=== PATIENT | female | born 1995 | race Caucasian/White ===

== ENCOUNTER 2023-03-12 10:27 | Outpatient (CLI) | payer OTHER, SELFPAY | END 2023-03-12 10:28 | disposition home or self-care (01) | PROVIDERS: PCP Physician Assistant Medical; Visit Provider Obstetrics & Gynecology | DX: Z86.14 Personal history of Methicillin resistant Staphylococcus aureus infection (principal) | CPT/HCPCS: 87081 ==

== ENCOUNTER 2023-03-19 13:56 | Outpatient (CLI) | payer OTHER, SELFPAY | END 2023-03-19 13:57 | disposition home or self-care (01) | PROVIDERS: PCP Physician Assistant Medical; Visit Provider Family Medicine | DX: R53.83 Other fatigue (principal); R68.89 Other general symptoms and signs; L65.9 Nonscarring hair loss, unspecified; Z78.9 Other specified health status | CPT/HCPCS: 80053; 82607; 82728; 84443 ==

== ENCOUNTER 2023-04-02 10:46 | Outpatient (CLI) | payer OTHER, SELFPAY | END 2023-04-02 10:47 | disposition home or self-care (01) | PROVIDERS: PCP Physician Assistant Medical; Visit Provider Obstetrics & Gynecology | DX: Z86.14 Personal history of Methicillin resistant Staphylococcus aureus infection (principal); Z12.4 Encounter for screening for malignant neoplasm of cervix | CPT/HCPCS: 87081 ==

== ENCOUNTER 2023-05-07 09:03 | Outpatient (CLI) | payer OTHER, SELFPAY ==
--- NOTE | 2023-05-07 09:15 | CRLHL7_ITS ---
For Patients: As a result of the Century Cures Act, medical imaging exams and procedure reports are released immediately into your electronic medical record. You may view this report before your referring provider. If you have questions, please contact your health care provider. INDICATION: Evaluate anatomy. COMPARISON: 02/12/2023 TECHNIQUE: Real time andrade scale imaging of the fetus was performed as well as color Doppler analysis of the umbilical vessels. FINDINGS: Sonographic imaging demonstrates a single living intrauterine gestation. Fetus demonstrates a regular cardiac rate of 152 beats per minute. Fetus has a breech position. The placenta lies left anterior without evidence of placenta previa. The edge of the placenta is located 5.5 cm from the internal cervical os. Amniotic fluid volume appears normal. Single deepest vertical pocket: 5.8 cm. The cervix is closed and measures 4.1 cm in length. The composite ultrasound gestational age is calculated at 21 weeks 6 days with an estimated sonographic due date of 09/11/2023. The estimated weight is 417 grams which lies at the 64th %. The following biometric measurements were obtained: Biparietal diameter: 5.0 cm/21 weeks 2 days 59th% Head circumference: 19.5 cm/21 weeks 5 days 72nd% Abdominal circumference: 16.0 cm/21 weeks 1 day 48th% Femur length: 3.6 cm/21 weeks 4 days 59th% The HC/AC ratio measures: 1.22 range (1.06-1.23) On anatomic survey, there is a normal appearance of the cerebral ventricles, cavum septi pellucidi, cisterna magna and cerebellum. The nose, lips, and facial profile appear normal. The cervical, thoracic and lumbar spine are well visualized and appear normal. There is a normal four-chamber heart view and the left and right ventricular outflow tracts appear normal. The diaphragm and stomach appear normal. The kidneys and bladder also appear normal. There is a normal three-vessel cord and cord insertion site. The four extremities appear normal. IMPRESSION: Normal OB ultrasound exam with concordance of clinical and sonographic dating. No intrinsic abnormalities noted on anatomic survey. Dictated by Pepe Camejo MD @ 05/07/2023 11:40:01 AM (Electronically Signed)
== END 2023-05-07 09:04 | disposition home or self-care (01) ==
PROVIDERS: PCP Physician Assistant Medical; Visit Provider Obstetrics & Gynecology
DX: Z34.92 Encounter for supervision of normal pregnancy, unspecified, second trimester (principal); Z3A.21 21 weeks gestation of pregnancy
CPT/HCPCS: 76805

== ENCOUNTER 2023-06-24 08:35 | Outpatient (CLI) | payer OTHER, SELFPAY | END 2023-06-24 08:36 | disposition home or self-care (01) | LOC: NFLDREF 06-28 09:29 | PROVIDERS: PCP Physician Assistant Medical; Referring Provider Physician Assistant Medical; Visit Provider Obstetrics & Gynecology | DX: Z34.90 Encounter for supervision of normal pregnancy, unspecified, unspecified trimester (principal); Z83.49 Family history of other endocrine, nutritional and metabolic diseases; Z3A.13 13 weeks gestation of pregnancy; F41.9 Anxiety disorder, unspecified; F32.A Depression, unspecified | CPT/HCPCS: 86592 ==

== ENCOUNTER 2023-06-30 09:39 | Outpatient (CLI) | payer OTHER, SELFPAY ==
[2023-06-30 09:53] VITALS: BP 119/78; PULSE 82
[2023-06-30 09:54] VITALS: RESP 16; TEMP 37
[2023-06-30 09:55] VITALS: PULSE 85; O2SAT 95
[2023-06-30 10:36] LABS: Appearance Urine Clear (Clear); Bilirubin Urine Negative (Negative); Blood Urine Negative (Negative); Color Urine Yellow (Yellow); Glucose Urine Negative (Negative); Ketones Urine Negative (Negative); Leukocyte Esterase Urine Negative (Negative); Nitrite Urine Negative (Negative); Protein Urine Negative (Negative); Specific Gravity Urine 1.015 (1.000-1.030); Urobilinogen Urine 0.2 (0.2-1.0); pH Urine 6.5 (5.0-8.5)
--- NOTE | 2023-06-30 12:19 | PC.OBNST ---
NST Note NST Note Start: 06/30/23 09:47 Freq: ONCE Status: Active Protocol: Document 06/30/23 11:15 WK (Rec: 06/30/23 12:19 WK [id number]) NST Note 1 Para (# of births) 0 EDC 09/17/23 Gestational Age In Weeks & Days 28 Weeks & 5 Days Patient Presented with Complaint(s) of Pain If Pain, describe location Abdominal pain L side of umbilicus with movement Reactive Yes Appropriate for Gestational Age Yes RN Zoey RNC Date 06/30/23 Reactive Yes Appropriate for Gestational Age Yes RN Iftikhar RN Date 06/30/23 OB NST charge Yes Complete NST Note via Write Note Yes The provider's electronic signature indicates the NST is reactive/appropriate for gestational age. *Note to provider: If an addendum is required, open the patient's chart and click on the note under the Nurse/Allied Health tab.
--- NOTE | 2023-06-30 15:33 | PM.OBLDTN ---
OB - Triage/Final Diagnosis Visit Information Time Seen by Provider: 11:00 Date Seen: 06/30/23 Narrative: The patient is a 27 year old 1 para 0 at 28 5/7 weeks gestation by LMP, who presents with left mid abdominal pain and decreased movement. Please see nursing documentation for complete details. Briefly, Cheryl noted onset of left abdominal pain just lateral to her umbilicus yesterday while at work. She left work, where her pain resolved with rest and Tylenol. She had question of decreased movement at that time, but this subsequently improved. This morning at work, she noted return of her symptoms with the same left-sided pain and question of decreased movement prompting her visit today. She reports pain is just left of the umbilicus, described as sharp with certain movements. No known exacerbating activities, but she notes onset when she is active at work. She has seen resting in the triage bed now, where her pain is absent. Denies fevers/chills, nausea/vomiting, bowel or bladder concerns. UA was completed today, negative for evidence of UTI. She denies any abdominal tightening or known contractions, vaginal bleeding or leaking of fluids. She notes movement has improved since presentation. Evaluation Laboratory results: Laboratory Tests 06/30/23 Range/Units 10:20 Urine Color Yellow (Yellow) Urine Appearance Clear (Clear) Urine pH 6.5 (5.0-8.5) Ur Specific [place] 1.015 (1.000-1.030) Urine Protein Negative (Negative) Urine Glucose (UA) Negative (Negative) Urine Ketones Negative (Negative) Urine Blood Negative (Negative) Urine Nitrite Negative (Negative) Urine Bilirubin Negative (Negative) Urine Urobilinogen 0.2 (0.2-1.0) Ur Leukocyte Esterase Negative (Negative) Vital signs: Vital Signs - 24 hr 06/30/23 09:53 06/30/23 09:54 06/30/23 09:55 Temperature 98.6 F Pulse Rate 82 Respiratory Rate 16 Blood Pressure 119/78 Pulse Oximetry 95 Comments: General: No acute distress Psych: Alert and oriented x 3, full affect HEENT: Normocephalic, atraumatic Abdomen: Gravid. Nontender to palpation throughout, no rebound or guarding. When pressing on site of previously reported pain, there is no tenderness. However upon attempted set up, positive Carnett's sign at this location consistent with left rectus abdominus muscle. Fetus (Single) Heart Rate Baseline: 135 Beater Out Leveling Machine Variability: Moderate (6-25) Monitor Accelerations: Present (10x10 consistent with GA) Monitor Decelerations: None Final Diagnosis (1) : Status: Acute Problem details: Tex is a 27yo at 28w5d GA seen in [facility] for left abdominal pain and decreased movement. ANC complicated by depression/anxiety, early nausea/vomiting and gestational anemia. She notes left abdominal pain, greatest with activity. She has no pain at rest, abdominal exam is entirely benign today. There is positive Carnett's sign over the left rectus abdominus, where I feel musculoskeletal pain is the most likely etiology of her symptoms. Recommend conservative care including support belt (provided today), rest, stretching, ice/heat and tylenol PRN. No contractions on toco nor by Cheryl's report prior to presentation. No signs/symptoms of labor at this time. Return precautions reinforced. With regard to decreased movement, testing today is reassuring and appropriate for gestational age. We reviewed kick count methods and return precautions. Next visit on 07/09/23. (2) Abdominal pain: Status: Acute (3) Nausea and vomiting during : Status: Acute (4) Anxiety and depression: Status: Acute (5) Family history of hemochromatosis: Status: Acute (6) Grief: Status: Acute
== END 2023-06-30 11:15 | disposition home or self-care (01) ==
LOC: OB OUT 09:44 → OB 09:45
PROVIDERS: PCP Physician Assistant Medical; Visit Provider Obstetrics & Gynecology
DX: Z34.93 Encounter for supervision of normal pregnancy, unspecified, third trimester (principal); Z3A.30 30 weeks gestation of pregnancy
CPT/HCPCS: 59025; 81003; 99213

== ENCOUNTER 2023-08-20 11:30 | Outpatient (CLI) | payer OTHER, SELFPAY | END 2023-08-20 11:31 | disposition home or self-care (01) | LOC: NFLDREF 08-23 07:00 | PROVIDERS: PCP Physician Assistant Medical; Referring Provider Physician Assistant Medical; Visit Provider Obstetrics & Gynecology | DX: Z36.85 Encounter for antenatal screening for Streptococcus B (principal) | CPT/HCPCS: 87081; 87653 ==

== ENCOUNTER 2023-08-23 21:07 | Outpatient (CLI) | payer OTHER, SELFPAY ==
[2023-08-23 21:23] VITALS: BP 121/75; PULSE 75; TEMP 36.7
[2023-08-23 21:24] VITALS: PULSE 78; O2SAT 96
[2023-08-23 21:53] LABS: Appearance Urine Clear (Clear); Bilirubin Urine Negative (Negative); Blood Urine Negative (Negative); Color Urine Yellow (Yellow); Glucose Urine Negative (Negative); Ketones Urine Negative (Negative); Leukocyte Esterase Urine Negative (Negative); Nitrite Urine Negative (Negative); Protein Urine Negative (Negative); Specific Gravity Urine 1.015 (1.000-1.030); Urobilinogen Urine 0.2 (0.2-1.0)
--- NOTE | 2023-08-23 23:09 | PC.OBNST ---
NST Note NST Note Start: 08/23/23 21:13 Freq: ONCE Status: Active Protocol: Document 08/23/23 23:06 DAR (Rec: 08/23/23 23:07 DAR [id number]) NST Note 1 Para (# of births) 0 EDC 09/17/23 Gestational Age In Weeks & Days 36 Weeks & 3 Days Patient Presented with Complaint(s) of Decreased movement,Pain If Pain, describe location Back pain and pelvic pain Other Complaints See obix documentation Reactive Yes Appropriate for Gestational Age Yes RN Rudy France RN Date 08/23/23 Reactive Yes Appropriate for Gestational Age Yes ENZO Schaeffer RN Date 08/23/23 OB NST charge Yes Complete NST Note via Write Note Yes The provider's electronic signature indicates the NST is reactive/appropriate for gestational age. *Note to provider: If an addendum is required, open the patient's chart and click on the note under the Nurse/Allied Health tab.
== END 2023-08-23 22:36 | disposition home or self-care (01) ==
LOC: OB OUT 21:07 → OB 21:08
PROVIDERS: PCP Physician Assistant Medical; Visit Provider Obstetrics & Gynecology
DX: O36.8130 Decreased fetal movements, third trimester, not applicable or unspecified (principal); Z3A.36 36 weeks gestation of pregnancy
CPT/HCPCS: 59025; 81003; 99213

== ENCOUNTER 2023-08-26 07:40 | Outpatient (CLI) | payer OTHER, SELFPAY ==
[2023-08-26 07:53] VITALS: PULSE 84; O2SAT 97
[2023-08-26 07:54] VITALS: RESP 16; TEMP 37.1
[2023-08-26 08:00] VITALS: BP 115/74; PULSE 77
[2023-08-26 08:16] VITALS: PULSE 75; O2SAT 98
--- NOTE | 2023-08-26 10:02 | PC.OBNST ---
NST Note NST Note Start: 08/26/23 07:50 Freq: ONCE Status: Active Protocol: Document 08/26/23 08:40 WK (Rec: 08/26/23 10:02 WK [id number]) NST Note 1 Para (# of births) 0 EDC 09/17/23 Gestational Age In Weeks & Days 36 Weeks & 6 Days Patient Presented with Complaint(s) of Decreased movement Reactive Yes RN Zoey RNC Date 08/26/23 Reactive Yes RN HRiley RN OB NST charge Yes Complete NST Note via Write Note Yes The provider's electronic signature indicates the NST is reactive/appropriate for gestational age. *Note to provider: If an addendum is required, open the patient's chart and click on the note under the Nurse/Allied Health tab.
== END 2023-08-26 09:00 | disposition home or self-care (01) ==
LOC: OB OUT 07:44 → OB 07:45
PROVIDERS: PCP Physician Assistant Medical; Visit Provider Obstetrics & Gynecology
DX: O36.8130 Decreased fetal movements, third trimester, not applicable or unspecified (principal); Z3A.36 36 weeks gestation of pregnancy
CPT/HCPCS: 59025; 99213

== ENCOUNTER 2023-08-27 14:15 | Outpatient (RCR) | payer OTHER, SELFPAY ==
--- NOTE | 2023-08-13 08:38 | ONC.NURNOTE ---
Dx: iron deficiency anemia
--- NOTE | 2023-08-13 10:43 | URNOTE ---
Request received for authorization for?Iron Sucrose (Venofer) ([id number]). Prior authorization is not required per [facility] site on 08/10/23 .
[2023-08-17 11:59] VITALS: BP 119/78; PULSE 77; RESP 16; TEMP 35.8; O2SAT 95
[2023-08-17] MEDS: IRON SUCROSE COMPLEX 200 MG in 0.9 % SODIUM CHLORIDE 100 ml 100 ML 440 MG IVPB (13:18)
[2023-08-17 13:40] VITALS: BP 108/73; PULSE 67; RESP 16; TEMP 36.8; O2SAT 97
[2023-08-17 14:15] VITALS: BP 115/79; PULSE 70; RESP 16; TEMP 36.9; O2SAT 98
[2023-08-19 08:38] VITALS: BP 122/79; PULSE 90; RESP 16; TEMP 36.6; O2SAT 97
[2023-08-19] MEDS: IRON SUCROSE COMPLEX 200 MG in 0.9 % SODIUM CHLORIDE 100 ml 100 ML 440 MG IVPB (09:27)
[2023-08-19 10:00] VITALS: BP 112/74; PULSE 77; RESP 16; TEMP 36.8; O2SAT 95
[2023-08-19 10:33] VITALS: BP 114/77; PULSE 79; RESP 16; TEMP 36.9; O2SAT 96
[2023-08-23 10:28] VITALS: BP 122/80; PULSE 88; RESP 16; TEMP 36.8; O2SAT 96
[2023-08-23] MEDS: IRON SUCROSE COMPLEX 200 MG in 0.9 % SODIUM CHLORIDE 100 ml 100 ML 440 MG IVPB (10:45)
--- NOTE | 2023-08-23 12:16 | ONC.NURNOTE ---
Patient here for iron infusion. She notes that she has been having vomitting intermittently and lower back pain since starting this. She was seen by [facility] on Wednesday and she feels that she was told that she only has one week left of infusions. With back pain being a possible side effect of the iron, phone call placed to [facility]. Triage talked with providers, who gave the okay to go ahead with iron infusion today. They recommend patient calling if pain continues. Infusion was tolerated while here, no changes. Patient told to contact [facility] if pain continues or worsens.
[2023-08-25 11:16] VITALS: BP 127/82; PULSE 80; RESP 16; O2SAT 97
[2023-08-25] MEDS: IRON SUCROSE COMPLEX 200 MG in 0.9 % SODIUM CHLORIDE 100 ml 100 ML 440 MG IVPB (11:35)
[2023-08-25 12:36] VITALS: BP 123/76; PULSE 78; RESP 16; O2SAT 96
[2023-08-27 15:00] VITALS: BP 128/84; PULSE 83; RESP 16; TEMP 36.4; O2SAT 98
[2023-08-27] MEDS: IRON SUCROSE COMPLEX 200 MG in 0.9 % SODIUM CHLORIDE 100 ml 100 ML 440 MG IVPB (15:11)
[2023-08-27 15:29] VITALS: BP 123/82; PULSE 79; RESP 16; TEMP 36.7; O2SAT 97
[2023-08-27 16:03] VITALS: BP 119/80; PULSE 78; RESP 16; TEMP 24.4; O2SAT 97
== END 2024-02-13 23:59 | disposition home or self-care (01) ==
LOC: CCIC 14:15
PROVIDERS: PCP Physician Assistant Medical; Referring Provider Physician Assistant Medical; Visit Provider Physician Assistant Medical
DX: D50.9 Iron deficiency anemia, unspecified (principal)
CPT/HCPCS: 96365; 96374; J1756

== ENCOUNTER 2023-09-09 23:59 | Outpatient (CLI) | payer OTHER, SELFPAY ==
[2023-09-10 00:09] VITALS: BP 123/84; PULSE 87; RESP 16; TEMP 36.7
--- NOTE | 2023-09-10 01:41 | PC.OBNST ---
NST Note NST Note Start: 09/10/23 00:01 Freq: ONCE Status: Active Protocol: Document 09/10/23 01:40 BETHEL (Rec: 09/10/23 01:41 BETHEL [id number]) NST Note 1 Para (# of births) 0 EDC 09/17/23 Gestational Age In Weeks & Days 39 Weeks & 0 Days Patient Presented with Complaint(s) of Pain Other Complaints Abdominal cramping Reactive Yes Appropriate for Gestational Age Yes RN Rudy Schaeffer RN Date 09/10/23 Reactive Yes Appropriate for Gestational Age Yes ENZO Bowden RN Date 09/10/23 OB NST charge Yes Complete NST Note via Write Note Yes The provider's electronic signature indicates the NST is reactive/appropriate for gestational age. *Note to provider: If an addendum is required, open the patient's chart and click on the note under the Nurse/Allied Health tab.
== END 2023-09-10 01:50 | disposition home or self-care (01) ==
LOC: OB OUT 23:59 → OB 09-10
PROVIDERS: PCP Physician Assistant Medical; Visit Provider Obstetrics & Gynecology
DX: O47.1 False labor at or after 37 completed weeks of gestation (principal); Z3A.39 39 weeks gestation of pregnancy
CPT/HCPCS: 59025; 99213

== ENCOUNTER 2023-09-14 15:55 | Inpatient (IN) | payer OTHER, SELFPAY ==
[2023-09-14] VITALS (8 sets, daily range): BP systolic 113–133; BP diastolic 57–84; PULSE 64–102; RESP 18; TEMP 36.5–36.9; O2SAT 95; BMI 38.2
--- NOTE | 2023-09-14 17:04 | W.PM.LDBA ---
Subjective History of Present Illness Time Seen by Provider: 17:04 Date Seen: 09/14/23 Narrative: Patient is being admitted to Labor and Delivery for elective IOL. She is a 28 year old at 39 4/7 weeks gestation. Her full history and physical was dictated by Dr. Fischer on 08/27/23. Please see this for details. Specific Issues/Plans GBS (+): ampicillin for prophylaxis 1. Depression and anxiety. Managed by PCP. Prescribed sertraline 01/27/2023 At 1st OB, had not started medication. PHQ9 13, GAD7 13. Recommend she start sertraline. Recommend therapy, declines at this time Took 8 wks of FMLA in early for depression and anxiety. As of 03/12/23, PHQ9 = 6 but GAD7 = 14. Not taking sertraline regularly 2. Obesity, BMI 32.7 Hemoglobin A1c 4.8% ASA 81 mg 3. History of MRSA MRSA swab x2: 1st swab- 03/12/23 = negative, 2nd swab 04/02/2023 = negative. 4. Cheryl's mother suddenly in February of 2022. YANCY's father late May of Creutzfeldt-Emmanuel disease (CJD). Family history of DVT, mother. Patient does not believe she had underlying blood clotting disorder, but will obtain further information. She did have metastatic pulmonary adenocarcinoma FOZoltan's father is having autopsy, testing for genetic variant of CJD by [facility] 5. History of bilateral breast reduction 6. Rubella non-immune MMR pp 7. Nausea and vomiting of . Using vitamin B6 and Unisom with suboptimal results. Prescribed Phenergan 12.5 mg on 03/12/23. Improved as of 16 weeks 8. Family history of hemochromatosis in her sister. Genetics consult done end of July; testing pending. Currently anemic; no current concerns regarding iron overload. 9. Anemia, with hemoglobin 10.4 at 28 weeks. Begin iron supplementation every other day. Repeat at 34 weeks : 10.7. Receiving iron infusions 10. Pap 02/12/23 : UNS, +HPV (not 16 or 18) repeat pap 04/02/23: NIL Repeat pap with HPV testing 11. GERD, suboptimal response to Tums. Omeprazole 20 mg daily 08/06/23. COVID: 07/28/23 Flu: 07/28/23 RSV: 08/06/23 H&P: Dr. Fischer on 08/27/2023 OB - Problem Based A/P Additional Plan (1) : Status: Acute Plan 1. Elective IOL started with placement of cook catheter 60mL/60mL. Will start IV Oxytocin at around 10pm per protocol. 2. GBS positive, start Ampicillin with start of IV Oxytocin. 3. Pain management as needed. 4. Care to be assumed by Dr. Powers tommorrow am. OB Exam Physical Exam Vital signs: Temp Pulse BP Pulse Ox 97.7 F 102 H 122/84 95 09/14/23 16:08 09/14/23 16:08 09/14/23 16:08 09/14/23 16:09 Detailed Labor and Delivery Exam Patient Gravid: Yes Dilation (cm): 1 Effacement (%): 50 Cervix position: mid Consistency: medium Tachysystole: No Fetus (Single) Station: -2 Amniotic Membrane Status: intact Heart Rate Baseline: 135 Monitor Accelerations: Present Monitor Decelerations: None Half-Way Variability: Moderate (6-25)
[2023-09-14] MEDS: LACTATED RINGERS 1000 ML 1,000 ML 125 ML IV (21:05)
[2023-09-14] MEDS: OXYTOCIN 30 unit/500 ML in NS 30 UNIT/500 ML BAG IVPB (21:10)
[2023-09-14 21:15] LABS: Basophils Absolute Auto 0.03 K/uL (0.00-0.30); Basophils Percent Auto 0.3 % (0.0-3.0); Eosinophils Absolute Auto 0.13 K/uL (0.00-0.50); Eosinophils Percent Auto 1.4 % (0.0-7.0); Hematocrit 34.9 % (33.0-51.0); Hemoglobin* 11.8 gm/dL (12.0-16.0); Immature Granulocytes Abs Auto 0.02 K/uL (0.00-0.30); Immature Granulocytes Pct Auto 0.2 %; Lymphocytes Percent Auto 16.1 % (20-44); Mean Corpuscular HGB Conc 34 gm/dL (32-36); Mean Corpuscular Hemoglobin 32 pg (26-34); Mean Corpuscular Volume 93 fL (80-100); Monocytes Percent Auto 4.9 % (0.0-11.0); Neutrophils Percent Auto 77.1 % (42.0-72.0); Platelet Count* 217 K/uL (140-440); RDW Coefficient of Variation % 15.1 % (11.5-15.5); Red Blood Count 3.74 m/uL (4.00-5.20); White Blood Count* 9.07 K/uL (4.50-11.00)
[2023-09-14 21:17] LABS: Slide Review Reflex No
[2023-09-14] MEDS: MORPHINE 10 MG/ML inj IM (22:18)
[2023-09-14] MEDS: hydrOXYzine pamoate 25 MG CAPSULE 100 MG PO (22:18)
[2023-09-15] VITALS (58 sets, daily range): BP systolic 101–143; BP diastolic 55–90; PULSE 62–108; RESP 16; TEMP 36.8–37.2; O2SAT 96–98
[2023-09-15] MEDS: AMPICILLIN 2 GM in 0.9 % SODIUM CHLORIDE Mini-bag 100 ML IVPB (08:36)
[2023-09-15] MEDS: LACTATED RINGERS 1000 ML 1,000 ML 125 ML IV ×3 (09:41→23:35)
[2023-09-15] MEDS: AMPICILLIN 1 GM in 0.9 % SODIUM CHLORIDE Mini-bag 100 ML IVPB ×3 (12:58→20:52)
--- NOTE | 2023-09-15 16:10 | PM.OBPNL ---
Subjective Time Seen by Provider: 15:00 Date Seen: 09/15/23 Narrative: Ms. Sanchez is a 28-year-old undergoing elective induction of labor at 39w5d GA. course is complicated by depression/anxiety, obesity, GERD and GBS positivity. Her induction was started by Dr. Du Cuadra, please see her H&P for complete details. Her induction progress has included Cook catheter and Pitocin, though Pitocin was discontinued for about 4 hours overnight in the setting of staffing issues. I 1st checked her cervix at 10:00 a.m., found to be 3/50/1. We continued Pitocin titration per heart rate and toco data, where repeat exam was performed at 1500 and was 4/50/-1. Risks, benefits and alternatives to amniotomy were reviewed and recline provided verbal consent to proceed. AROM performed with return of clear fluid. Excellent application of head to cervix. Objective Exam: Cervix: 4/50/-1. Amniotomy performed with return of clear fluid FHR: Category 1. baseline 130bpm, moderate variability, accelerations present, decelerations absent. EFW by Peyman: 3500g Vital Signs: Last Vital Signs Temp 98.2 F 09/15/23 15:32 Pulse 76 09/15/23 14:56 Resp 16 09/15/23 11:04 BP 124/79 09/15/23 14:56 Pulse Ox 95 09/14/23 16:09 Assessment Station: -2 Heart Rate Baseline: 135 Monitor Accelerations: Present Monitor Decelerations: None Plan Plan: - Cervix is 4/50/-1, s/p amniotomy - Plan to continue Pitocin titration per heart rate/toco data - BT O positive - GBS positive, ampicillin ongoing
[2023-09-15] MEDS: LIDOCAINE 2% (PF) 5 ML VIAL EPIDURAL (19:04)
[2023-09-15] MEDS: ROPIVACAINE 0.2% 100 ml 100 ML 12 MG EPIDURAL (19:04)
[2023-09-15] MEDS: ROPIVACAINE 0.2 % PF 10 ML INJ 20 MG EPIDURAL (19:04)
--- NOTE | 2023-09-15 19:12 | P.ANBPRC_ITS ---
[facility] Medical History (Updated 08/07/23 @ 22:11 by Terra Tapia MD) Vegetarian diet ?Z78.9 - Other specified health status (ICD-10) Infection of kidney ?N15.9 - Renal tubulo-interstitial disease, unspecified (ICD-10) Cyclic vomiting syndrome (2012) ?R11.15 - Cyclical vomiting syndrome unrelated to migraine (ICD-10) Grief ?F43.21 - Adjustment disorder with depressed mood (ICD-10) Nausea and vomiting during ?O21.9 - Vomiting of , unspecified (ICD-10) Anxiety and depression ?F41.9 - Anxiety disorder, unspecified (ICD-10) ?F32.A - Depression, unspecified (ICD-10) History of staphylococcal infection ?Z86.19 - Personal history of other infectious and parasitic diseases (ICD-1 0) Hx MRSA infection ?Z86.14 - Personal history of Methicillin resistant Staphylococcus aureus infection (ICD-10) Abscess ?L02.91 - Cutaneous abscess, unspecified (ICD-10) Surgical History (Updated 03/19/23 @ 14:07 by Danica Harvey MD) History of third molar tooth extraction ?K08.409 - Partial loss of teeth, unspecified cause, unspecified class (ICD- 10) History of bilateral breast reduction surgery ?Z98.890 - Other specified postprocedural states (ICD-10) Family History (Updated 03/19/23 @ 14:10 by Danica Harvey MD) Brother Depression Mother DVT (deep venous thrombosis) Coronary artery disease Lung cancer Maternal Grandfather Seizure disorder Family/Other Seizure disorder Brother Diabetes Sister Diabetes Social History (Updated 03/19/23 @ 14:11 by Danica Harvey MD) Narrative: Engaged, [employer], Exercise 4 days a week by running 2 miles Nonsmoker Does not drink alcohol when , usually 2 drinks a week No drugs Non-smoker What is your current living situation?: I presently have a place to live Problems where you live: no known problems In the past 12 months, utilities in danger of being shut off: no In past 12 months, lack of transportation kept you from medical appts, meetings, work, or getting things needed for daily living: no In the past 12 mos, have been you worried that your food would run out before you had money to buy more?: never true In the past 12 mos, the food you bought just didn't last and you didn't have money to buy more?: never true Smoking Status: Never smoker How often does anyone, including family, friends and others, physically hurt you : never How often does anyone, including family, friends and others, insult or talk down to you: never How often does anyone, including family, friends and others, threaten you with harm: never How often does anyone, including family, friends and others, scream or curse at you: never Little interest or pleasure in doing things: several days Feeling down, depressed, or hopeless: not at all Meds Home Medications and Allergies Home Medications Medication Instructions Recorded Confirmed Type prenat.vits,dickson,yxo-zltf-rhgwv 1 tab PO QDAY 01/27/23 09/14/23 History aspirin 81 mg tablet,delayed 81 mg PO QDAY 04/02/23 09/14/23 History release (Adult Low Dose Aspirin) Allergies Allergy/AdvReac Type Severity Reaction Status Date / Time No Known Drug Allergies Allergy Verified 09/10/23 08:41 Results Labs Labs: Laboratory Results - last 24 hr 09/14/23 21:05 WBC 9.07 RBC 3.74 L Hgb 11.8 L Hct 34.9 MCV 93 MCH 32 MCHC 34 RDW Coeff of Chuckie 15.1 Plt Count 217 Neut % (Auto) 77.1 H Lymph % (Auto) 16.1 L Mcdowell % (Auto) 4.9 Eos % (Auto) 1.4 Baso % (Auto) 0.3 Neut # (Auto) 7.00 Lymph # (Auto) 1.50 Mcdowell # (Auto) 0.40 Eos # (Auto) 0.13 Baso # (Auto) 0.03 Abs Immat Gran (auto) 0.02 Imm/Tot Granulo (auto) 0.2 Blood Type O Positive Antibody Screen NEGATIVE Vital Signs Vital Signs: Last Vital Signs Temp 98.4 F 09/15/23 18:04 Pulse 87 09/15/23 19:10 Resp 16 09/15/23 11:04 BP 121/72 09/15/23 19:10 Pulse Ox 96 09/15/23 19:05 Weight: 104.372 kg Height: 165.1 cm Anesthesia Procedures Epidural Insertion Patient Location: OB Start Time: 18:45 Stop Time: 19:12 Start Date: 09/15/23 Stop Date: 09/15/23 Reason for Block: procedure for pain Patient Position: sitting Performed By: Orville Cadena Preanesthetic Checklist: IV checked, risks and benefits discussed, surgical consent, monitors and equipment checked, pre-op evaluation, timeout performed and anesthesia consent Prep: chlorhexidine gluconate Monitoring: blood pressure monitoring, continuous pulse oximetry and heart rate Approach: midline Vertebral Space: lumbar (1-5) Epidural Technique: RYAN air Needle Type: Tuohy needle Injection Technique: continuous catheter Needle gauge: 17 Needle Length (cm): 10 cm Needle Insertion Depth (cm): 7 Catheter Gauge: 19 Catheter Type: multi-orifice Catheter at skin depth (cm): 13 Test Dose Result: negative and lidocaine 1.5% with epinephrine 1 to 200,000
[2023-09-16] VITALS (125 sets, daily range): BP systolic 96–166; BP diastolic 50–102; PULSE 66–118; RESP 16–20; TEMP 36.5–37.8; O2SAT 88–100
[2023-09-16] MEDS: LIDOCAINE 2% (PF) 5 ML VIAL EPIDURAL ×3 (00:35→10:21)
[2023-09-16] MEDS: PHENYLEPHRINE 100 MCG/ML SYRINGE IVP ×2 (00:44→05:31)
[2023-09-16] MEDS: AMPICILLIN 1 GM in 0.9 % SODIUM CHLORIDE Mini-bag 100 ML IVPB ×4 (01:35→13:19)
[2023-09-16] MEDS: ONDANSETRON 2 MG/ML inj 4 MG IV (01:58)
[2023-09-16] MEDS: ROPIVACAINE 0.2% 100 ml 100 ML 12 MG EPIDURAL ×3 (02:06→14:58)
--- NOTE | 2023-09-16 03:49 | PM.OBPNL ---
Subjective Time Seen by Provider: 04:31 Date Seen: 09/16/23 Narrative: Ms. Sanchez is a 28yo at 39w6d GA ongoing elective IOL. course is complicated by depression/anxiety, obesity, GERD and GBS positivity. Labor course has included cook catheter, pitocin and AROM at 1515. She has made slow change through the latent phase of labor, at 5/70/-1 by RN exam at last check at 2350. She has had difficulty with pain control despite epidural, where this was re-bolused and now pain control is better. She had pitocin turned down once due to tachysystole without FHR changes and then off x1 due to several late decelerations (off from 0100 to 0215), now titration continues and is at 4 presently. Cheryl as been resting the last several hours. She notes pain is much improved, but still breathes through contractions. She denies uterine tenderness, malodorous discharge. She has felt intermittently warm or cool, but no particular fevers/chills. Last maternal temperature was 100.1 deg F. No maternal or tachycardia present. Objective Exam: General: Alert and oriented, in no acute distress Cervix: 4-5/70/-1 FHR: Category 1. Baseline 140bpm with moderate variability, accelerations present and decelerations absent. Vital Signs: Last Vital Signs Temp 99.5 F 09/16/23 02:47 Pulse 76 09/16/23 03:36 Resp 16 09/16/23 02:47 BP 124/63 09/16/23 03:36 Pulse Ox 96 09/15/23 19:05 Assessment Station: -2 Heart Rate Baseline: 135 Monitor Accelerations: Present Monitor Decelerations: None Plan Plan: Ms. Sanchez is a 28yo undergoing elective IOL. course is complicated by depression/anxiety, obesity, GERD and GBS positivity. - She has made slow change through the latent phase of labor, 4-5cm on my last exam, 70% effaced and -1 station. IUPC placed after discussion of risks/benefits and alternatives - Cheryl has noted mild warm/cool feelings, last maternal temp was 100.1 deg F. She has no uterine tenderness, malodorous discharge, maternal or tachycardia. - We discussed chorioamnionitis is a potential risk of prolonged induction, may be associated with dysfunctional labor patterns and increased risk of . She does not meet criteria for chorioamnionitis at this time - would initiate ampicillin/gentamicin if she does have a fever of >=100.4 deg F, we would additionally proceed with labs including a CBC and T/S. - Discussed my standard recommendation to proceed with primary delivery for failed IOL would be 24 hours on pitocin and 18 hours ruptured (would be 0915 this AM) if we fail to achieve active labor. That said, we may consider sooner in the event of nonreassuring heart rate or development of chorio. All questions answered. - Plan to continue pitocin titration per FHR and IUPC data at this this.
[2023-09-16] MEDS: LACTATED RINGERS 1000 ML 1,000 ML 125 ML IV ×3 (07:41→19:20)
--- NOTE | 2023-09-16 09:30 | P.OBPN_ITS ---
Subjective Time Seen by Provider: 08:15 Date Seen: 09/16/23 Narrative: Subjective: Patient is uncomfortable w/ epidural during contractions, just received a bolus from anesthesia. Pitocin: 13 milliunits/minute. Vital signs: Per electronic medical record. EFM: Baseline 136, many accelerations, no decelerations, moderate variability, reactive. Category 1. IUPC: Contractions every 3-5 minutes. [place] units 125-130/10 minutes: not adequate. SVE: 4-5 cm/70 %/-2. Unchanged from previous exams. Assessment: 28-year-old 1 para 0 at 39 weeks 6 days gestation undergoing elective induction of labor. Plan: 1. Continue Pitocin per labor induction protocol. 2. Epidural for labor analgesia 3. Maximum temperature 100.1? F, most recent temperature 98.7? F. Will continue to monitor and if has a temperature 100.4? F or higher I will start ampicillin and gentamicin for chorioamnionitis. No evidence of maternal or tachycardia, painful fundus between contractions, foul-smelling discharge or fever at this time. 4. 18 hours post rupture of membranes at 9:15 a.m. today and 24 hours on Pitocin at 11:00 a.m. today. She does not make any cervical change in that time she meets criteria for an unsuccessful induction of labor and a will be recommended. 5. I reviewed how a is performed and Kvng reviewed risks associated with . 6. I will reassess the patient after 11:00 a.m. and a plan for delivery. Objective Vital Signs: Last Vital Signs Temp 98.7 F 09/16/23 08:02 Pulse 72 09/16/23 09:25 Resp 18 09/16/23 08:02 BP 129/79 09/16/23 09:25 Pulse Ox 96 09/15/23 19:05 Assessment Station: -2 Heart Rate Baseline: 135 Monitor Accelerations: Present Monitor Decelerations: None
[2023-09-16] MEDS: fentaNYL 100 MCG/2 ML inj EPIDURAL (10:35)
--- NOTE | 2023-09-16 16:40 | PM.OBPNL ---
Subjective Time Seen by Provider: 04:35 Date Seen: 09/16/23 Narrative: Subjective: Patient is uncomfortable with contractions even with an epidural. She states she feels pain in her but. Pitocin: 18 milliunits/minute. Vital signs: Per electronic medical record. EFM: Baseline 140s, positive accelerations, early decelerations with contractions, minimal and moderate variability, not reactive. Category 2. [employer]: Contractions every 2-4 minutes. SVE: Vertex remains at the +1 station with increased caput. No movement of the vertex after 2.5 hours of pushing Assessment: 28-year-old 1 para 0 at 39 weeks 6 days gestation arrest of descent Plan: 1. Stopped Pitocin. 2. Recommended delivery for arrest of descent. 3. Anesthesia and operating room team notified. 4. Consent form reviewed and signed for primary low-transverse section. Objective Vital Signs: Last Vital Signs Temp 99.3 F 09/16/23 15:54 Pulse 72 09/16/23 16:30 Resp 18 09/16/23 15:54 BP 130/77 09/16/23 16:30 Pulse Ox 100 09/16/23 12:17 Assessment Station: -2 Heart Rate Baseline: 135 Monitor Accelerations: Present Monitor Decelerations: None
[2023-09-16] MEDS: CEFAZOLIN 1 GM inj 3 GM IVP (17:28)
[2023-09-16] MEDS: AZITHROMYCIN 500 MG in 0.9 % SODIUM CHLORIDE 250 ml 250 ML 255 MG IVPB (17:28)
--- NOTE | 2023-09-16 18:18 | W.ANESCHARGE ---
Anesthesia Charges Start Date/Time Anesthesia Start Date: 09/16/23 Anesthesia Start Time: 17:18 Stop Date/Time Anesthesia Stop Date: 09/16/23 Anesthesia Stop Time: 19:00 Summary Emergency: CORPORATE RISK ANALYST
--- NOTE | 2023-09-16 18:37 | W.PM.NB ---
Nerve Block Nerve Block Time Seen by Provider: 18:38 Date Seen: 09/16/23 Type of block requested by surgeon for post-operative analgesia: TAP Side: bilateral Time out performed: Yes Verification of patient name: Yes Verification of date of : Yes Name of person performing procedure: Jasmine Lennox Continuous monitoring Was continuous monitoring of O2 sat, B/P, property assessment monitor, recorded every 15 minutes?: Yes Procedure Checklist: sterile prep, needles and gloves Ultrasound guided. Images saved: Yes Medications given in 5ml increments after negative aspiration: Marcaine %: 0.25 mL: 30 Needle gauge: 21 and Exparel mL: 10 Needle gauge: 21 Patient tolerated procedure well: Yes Block Charges Block Charge (with Pro Fee): TAP Bilateral Use of Ultrasound Machine for Block: Yes- US Guidance/pain block
--- NOTE | 2023-09-16 18:41 | P.PCN_ITS ---
Procedure Note Time Seen by Provider: 18:41 Date Seen: 09/16/23 Date of procedure: 09/16/23 Will [facility] bill your pro fee for this procedure?: Yes Procedure: Preoperative diagnosis: 28-year-old 1 para 0 at 39 and 6/7 weeks * Arrest of descent * Suspected occiput transverse presentation Postoperative diagnosis: Same, left occiput transverse presentation Procedure: Primary low-transverse section Anesthesia: Attempted epidural then spinal which was then converted to general endotracheal [Spinal/epidural/general endotracheal] Surgeon: Eve Ballard MD Rim Turning Machine Operator: Not applicable Quantitative blood loss: 621 mL IV Fluid: 1000 mL UOP: 75 mL Specimen: None Drain(s): Calderon to gravity Indications: No progress of the vertex after 2.5 hours of pushing. Findings: A live female was delivered from the LOT position at 6:02 pm. Apgars were 8 at 1 min and 8 at 5 min, respectively. Infant weight: 7 lb 11 oz, 3490 g. Nuchal cord(s): No. The placenta was delivered spontaneously and complete at 6:03 p.m. Amniotic fluid: Clear. Normal uterus, fallopian tubes and ovaries were noted. Other findings: No abnormalities Procedure: Cheryl was taken to the OR where epidural followed by spinal anesthetic was found be inadequate. A Calderon catheter was placed. Due to inadequate spinal and epidural anesthesia general endotracheal anesthesia was induced. The patient was then placed in the dorsal supine position with a leftward tilt. She was then prepped and draped in a normal sterile manner. A Pfannenstiel skin incision was made and carried through sharply to the underlying layer of fascia. Fascia was incised in the midline and this incision carried laterally with Arias scissors. The superior aspect of fascial incision was grasped with Phuong clamps, tented up, and the rectus muscles dissected off with a combination of blunt and sharp dissection. The inferior aspect of the fascial incision was not dissected off the rectus muscles. The rectus muscles were in the midline. The peritoneum was entered bluntly. This opening was extended bluntly. An Biju-O self-retaining retractor was placed. A bladder flap was not created. Uterus was incised in a low transverse manner in the midline. This incision carried laterally with blunt pressure on the inferior and superior aspects of the uterine incision. The amniotic sac was ruptured. The 's head and body was delivered atraumatically. The umbilical cord was clamped and cut immediately and the handed to waiting pediatric and nursing staff. The placenta was delivered spontaneously. The uterus was cleared of clots and debris. The uterine incision was re-approximated with the uterus in vivo. The 1st layer using 0-Vicryl in a running, locked manner. The 2nd layer using 0- Monocryl in a running, vertical, imbricating layer. Additional sutures needed for hemostasis: No. Excellent hemostasis was verified. The Biju retractor was removed. Peritoneum was repaired using 3-0 Vicryl in a running manner. The rectus muscles were not reapproximated. The rectus muscles were then closely inspected to verify hemostasis. Hemostasis was obtained with bipolar cautery. The fascia was then re-approximated using 0-Maxon loop in a running manner. The subcutaneous tissue was then irrigated with saline and hemostasis obtained with bipolar cautery. The subcutaneous tissue was re-approximated using 3-0 plain gut in a running manner. The skin was reapproximated using 4-0 Monocryl in a running subcuticular manner. Exofin skin adhesive and a Mepiplex dressing were applied. The patient tolerated this procedure well. Sponge, lap and instrument counts were correct x2 active to the procedure. Patient was taken to the recovery area in stable condition. The patient received 3 g of IV Ancef and 500 mg of IV azithromycin prior to skin incision. She received 1 g TXA IV and 1 dose Methergine IM after delivery of the placenta along with 30 units Pitocin 500 mL saline wide open.
[2023-09-16] MEDS: KETOROLAC 30 MG/ML inj IVP (19:22)
--- NOTE | 2023-09-16 19:37 | SUR.PHASEI ---
patient meets pacu d/c criteria
[2023-09-16] MEDS: ACETAMINOPHEN 500 MG TABLET 1000 MG PO (21:27)
[2023-09-17] VITALS (7 sets, daily range): BP systolic 104–126; BP diastolic 64–77; PULSE 73–96; RESP 16–17; TEMP 36.4–36.8; O2SAT 96–99
[2023-09-17] MEDS: OXYCODONE 5 MG TABLET PO (00:45)
[2023-09-17] MEDS: KETOROLAC 30 MG/ML inj IVP ×3 (02:30→15:02)
[2023-09-17 06:43] LABS: Hemoglobin* 10.6 gm/dL (12.0-16.0)
[2023-09-17] MEDS: ACETAMINOPHEN 500 MG TABLET 1000 MG PO ×3 (07:29→19:13)
[2023-09-17 07:39] LABS: Basophils Percent Auto 0.2 % (0.0-3.0); Eosinophils Percent Auto 1.2 % (0.0-7.0); Immature Granulocytes Pct Auto 0.7 %; Lymphocytes Percent Auto 14.3 % (20-44); Mean Corpuscular HGB Conc 33 gm/dL (32-36); Mean Corpuscular Hemoglobin 32 pg (26-34); Mean Corpuscular Volume 96 fL (80-100); Monocytes Percent Auto 5.4 % (0.0-11.0); Neutrophils Percent Auto 78.2 % (42.0-72.0); Platelet Count* 186 K/uL (140-440); RDW Coefficient of Variation % 15.8 % (11.5-15.5); Red Blood Count 3.33 m/uL (4.00-5.20); White Blood Count* 11.21 K/uL (4.50-11.00)
[2023-09-17 07:41] LABS: Albumin* 2.5 g/dL (3.3-5.0)
[2023-09-17 07:44] LABS: Alanine Aminotransferase* 13 U/L (4-35); Alkaline Phosphatase* 99 U/L (40-150); Aspartate Amino Transferase* 32 U/L (12-35); Bilirubin Total* 0.3 mg/dL (0.1-1.5); Creatinine* 0.4 mg/dL (0.5-1.5); Est. Creatinine Clearance* 185.05; Estimated Glomerular Filt Rate 136 ml/min
[2023-09-17 07:45] LABS: Slide Review Reflex No
--- NOTE | 2023-09-17 08:21 | P.OBPN_ITS ---
OB - PN:Subj Subjective Date Seen: 09/17/23 Patient comments OB post-: no complaints and pain well controlled [place] infant status: and doing well [place] feeding status: exclusively Narrative: Cheryl is a 28 y.o. who was admitted to [facility] for elective IOL.? She had an uncomplicated repeat .? ? The patient feels well.? The pain is well controlled with current medications.? She has no new complaints.? She is breast feeding and reports things are going well.? the patient has done well.? Vitals have been stable. She has had elevated blood pressures more than 4 hours apart since admission and meets the criteria for hypertensive disorder of . TP ratio collected from catheter results are pending. Other labs are WNL.? She has remained afebrile.? Has a good appetite, is tolerating a general diet.? She is voiding without difficulty.? She is not yet passing gas but feels things are starting to move and has not had a bowel movement.? She is ambulating and denies any dizziness.? Has Small amount of rubra lochia.? OB - PN: Obj Exam Physical Exam: Vital signs: Temp Pulse Resp BP Pulse Ox O2 Del Method 97.7 F 96 17 104/64 96 Room Air 09/17/23 07:31 09/17/23 07:31 09/17/23 07:31 09/17/23 03:11 09/17/23 07:31 09/17/23 03:11 Narrative: GENERAL APPEARANCE:? normal affect, alert, no distress MOOD:? appropriate CHEST:? clear to auscultation HEART:? regular rate and rhythm ABDOMEN:? soft, non-tender the uterine fundus is At Umbilicus, Midline and is appropriate for the stage of recovery. EXTREMITIES:? normal and trace edema Incision: dressing clean dry and intact, due to be removed this morning. Urinary Catheter Management: Urethral: Cath placed during this visit: no Reason for continuing: surgical procedure OB - PN: Obj Data Labs Labs: Laboratory Results - last 24 hr 09/17/23 09/17/23 09/17/23 06:23 06:30 07:26 WBC 11.21 H RBC 3.33 L Hgb 10.6 L Hct 32.0 L MCV 96 MCH 32 MCHC 33 RDW Coeff of Chuckie 15.8 H Plt Count 186 Neut % (Auto) 78.2 H Lymph % (Auto) 14.3 L [place] % (Auto) 5.4 Eos % (Auto) 1.2 Baso % (Auto) 0.2 Neut # (Auto) 8.80 H Lymph # (Auto) 1.60 [place] # (Auto) 0.60 Eos # (Auto) 0.10 Baso # (Auto) 0.00 Abs Immat Gran (auto) 0.10 Imm/Tot Granulo (auto) 0.7 Creatinine 0.4 L Estimated Creat Clear 185.05 Estimated GFR 136 Total Bilirubin 0.3 Direct Bilirubin 0.0 AST 32 ALT 13 Alkaline Phosphatase 99 Total Protein 5.0 L Albumin 2.5 L Lab Acknowledgement Test Added OB - PN: A/P Delivery Assessment and Plan (1) care and examination immediately after delivery: Status: Acute (2) Lactating mother: Status: Acute (3) Status post delivery: Status: Acute Plan day: 1 Plan: routine care Comments: Assessment/Plan?G 1 P 1 status post uncomplicated primary .? ?? 1.? Continue route PP cares? 2.? .? May see if desired? 3.? Anticipate discharge home tomorrow or the following day per pt preference? 4. Gestational Hypertension, TP ratio pending. monitor BP and for s/s of preeclampsia?
[2023-09-17] MEDS: DOCUSATE SODIUM 100 MG CAPSULE PO (08:30)
[2023-09-17 10:30] LABS: Total Protein Urine 30 mg/dL
[2023-09-17 10:31] LABS: Creatinine Urine 81.1 mg/dL
[2023-09-17] MEDS: MEASLES,MUMPS,RUBELLA VACC/PF 1 DOSE INJ 1 EACH SUBCUT (20:33)
[2023-09-17] MEDS: IBUPROFEN 600 MG TABLET PO (20:54)
[2023-09-18] MEDS: ACETAMINOPHEN 500 MG TABLET 1000 MG PO ×2 (01:27→08:53)
[2023-09-18] MEDS: IBUPROFEN 600 MG TABLET PO ×2 (03:35→11:55)
[2023-09-18 03:37] VITALS: BP 131/76; PULSE 82; RESP 16; TEMP 36.7; O2SAT 97
[2023-09-18 08:44] VITALS: BP 125/84; PULSE 76; RESP 16; TEMP 36.8
--- NOTE | 2023-09-18 10:12 | PM.OBPNVD1 ---
OB - PN:Subj Subjective Time Seen by Provider: 10:12 Date Seen: 09/18/23 Narrative: Cheryl is a 28yo now 1 admitted on 09/14/23 at 39w4d gestation for an elective IOL. She underwent a primary LTCS complicated by need for GET anesthesia due to inadequate pain control with spinal and epidural. section was performed due to arrest of descent and LOT presentation on 09/16/2023. She is to blood pressures of 130s/90s with normal preeclampsia labs otherwise all of her blood pressures were normal. She complained of significant bilateral lower extremity edema but otherwise denied headaches, visual changes and right upper quadrant pain, nausea and vomiting. She was passing flatus, tolerating a regular diet, ambulating and urinating without difficulty by postoperative day 2. OB - PN: Obj Exam Physical Exam: Vital signs: Temp Pulse Resp BP Pulse Ox O2 Del Method 98.2 F 76 16 125/84 97 Room Air 09/18/23 08:44 09/18/23 08:44 09/18/23 08:44 09/18/23 08:44 09/18/23 03:37 09/18/23 03:37 Narrative: GENERAL APPEARANCE: Pleasant, , well-groomed woman in no acute distress. VITAL SIGNS: as noted in nursing notes HEAD: Normocephalic, atraumatic. THYROID: no masses, nodularity, tenderness or enlargement. LUNGS: Clear to auscultation bilaterally without wheezes, rales or rhonchi. HEART: Regular rate and rhythm with normal S1 and S2. No gallop, rub or murmur. ABDOMEN: Fundus firm 1 cm below the umbilicus in the midline. Soft, nontender, nondistended, with normal bowels sounds throughout. INCISION: Clean, dry and intact with sutures and skin adhesive. EXTREMITIES: No cyanosis, clubbing, or varicosities. 1+ bilateral lower extremity edema to the ankle. NEUROLOGIC: Normal gait and balance. Normal deep tendon reflexes at bilateral patella 2+/2, equal without clonus. PSYCHIATRIC: alert and oriented x3. Normal speech pattern, eye contact and affect. SKIN: Warm, dry, and well perfused. Good turgor. No lesions, nodules or rashes. Urinary Catheter Management: Urethral: Cath placed during this visit: yes, but has since been removed by the nurse Reason for continuing: decision to DC catheter Removal date: 09/17/23 Removal time: 08:30 OB - PN: Obj Data Labs Labs: Laboratory Results - last 24 hr 09/17/23 09:42 Urine Creatinine 81.1 Protein/Creatinin Ratio 0.30 H Urine Total Protein 30 OB - PN: A/P Delivery Assessment and Plan (1) care and examination immediately after delivery: Status: Acute (2) Lactating mother: Status: Acute (3) Status post delivery: Problem details: Girl, [employer], weight 7#11oz, apgars 8/8. arrest of descent, LOT presentation. Status: Acute Plan 1. Discharge home today. 2. Return to clinic in 2 weeks for incision check, screen for anxiety/depression and discuss contraceptive options. 3. Return to clinic in 6 weeks for /physical exam Plan Plan: routine care and discharge home
--- NOTE | 2023-09-18 10:18 | P.DS_ITS ---
DS: Providers Provider Date Seen: 09/18/23 Date of admission: 09/14/23 15:55 Primary care physician: Jeanna Titus PA-C Admitting Clinician: Domi Clements MD Attending Physician on discharge: Domi Clements MD Exam Narrative: Exam Narrative: See my rounding note Const: Vital Signs, click to edit/add: Vital Signs - 24 hr 09/17/23 11:40 09/17/23 15:29 09/17/23 20:40 Temperature 97.5 F L 98.3 F 97.5 F L Pulse Rate [Pulse Oximeter] 91 80 73 Respiratory Rate 16 16 16 Blood Pressure [Ri ght Arm] 106/77 111/73 116/76 Pulse Oximetry 99 98 97 Oxygen Delivery Me thod Room Air Room Air Room Air 09/17/23 23:47 09/18/23 03:37 09/18/23 08:44 Temperature 97.6 F 98.1 F 98.2 F Pulse Rate [Pulse Oximeter] 95 82 76 Respiratory Rate 16 16 16 Blood Pressure [Ri ght Arm] 126/76 131/76 125/84 Pulse Oximetry 97 97 Oxygen Delivery Me thod Room Air Room Air OB - DS: Summary Hospital Course Hospital Course: See my rounding note for complete details. Peripartum Data Infant delivery method: Primary C/S; Labored Procedures: Procedures Operation Date: 09/16/23 17:45 Actual Procedure Side Surgeon p Primary Low Transverse Section Eve Ballard MD complications: none Gender: Female Time Spent with Patient Time attestation: Total time spent providing and/or coordinating discharge services: Discharge Plan Discharge Disposition: Home, Self-Care Date of Admission: 09/14/23 15:55 Attending Provider on Discharge: Eve Ballard Primary Care Provider: Jeanna Titus Condition: Stable Anticipated Discharge Date/Time: 09/18/23 15:30 Discharge Medications: New docusate sodium 100 mg Capsule 100 mg PO BID PRNQty: 100 0RF ibuprofen 600 mg Tablet 600 mg PO Q6H PRN (Reason: Pain) Qty: 30 0RF oxycodone 5 mg Tablet 5 mg PO 3XD PRN (Reason: Pain) Qty: 21 0RF Continued prenat.vits,dickson,[id number] Tablet 1 tab PO QDAY omeprazole 20 mg capsule,delayed release(DR/EC) 20 mg PO QDAY Qty: 30 2RF Discontinued aspirin [Adult Low Dose Aspirin] 81 mg tablet,delayed release (DR/EC) 81 mg PO QDAY Discharge Orders: Discharge Order (Routine); Ordered 09/18/23 Ordered By: Eve Ballard Patient Education: Caring for Your Baby (DC), (DC) Additional Instructions: ACTIVITY RESTRICTIONS: * Nothing vaginally for 6 weeks: no tampons/intercourse * No driving while taking narcotic pain medication during the day. 1-2 weeks. Okay to be the passenger anytime. * Lifting restriction: Maximum of 20 pounds for 6 weeks. * High impact or core exercises: 6 weeks. * Submerge the incision in water (bath/pool/dior): 2 weeks. * Off of work/school for a minimum of 8 weeks NO RESTRICTIONS for: * Walking * Going up/down stairs * Showering Symptoms to report to doctor: * Bleeding that saturates more than one pad per hour ?-Passing clots larger than the size of a golf ball ?-Pain not relieved by prescribed medication ?-Fever above 100.4 degrees Fahrenheit ?-A foul vaginal odor ?-Difficulty in emotions, mood and functions ?-Thoughts of hurting yourself and/or ?-Painful, reddened area in your breast ?-Any drainage, redness or tenderness in your IV/epidural site ?-Severe headache that doesn't improve after taking medications ?-Changes in vision, including temporary loss of vision, blurred vision, and/or light sensitivity ?-Upper abdominal pain (usually under ribs on the right side) ?-Decrease in urination or painful, frequent urinating ?-Chest pain ?-Shortness of breath ?-Tenderness or pain with redness and/swelling in the calf(s) of your leg Follow-up Appointments: 1. [facility] 2 weeks for an incision check, screen for anxiety/depression and discuss contraceptive options. 2. A 6 week visit for an annual physical exam. consultation services are available to all mothers and babies for the first year after delivery.? To make an appointment, please call [phone]. Discharge Diet: Regular Follow Up Appointments: Jeanna Titus PA-C [Primary Care Provider] - [facility] [place] [Provider Group] Forms: MyHealth Info Instructions
== END 2023-09-18 12:28 | disposition home or self-care (01) | DRG 788 ==
PROVIDERS: Advanced Practice Midwife; Obstetrics & Gynecology; Admitting Provider Obstetrics & Gynecology; PCP Physician Assistant Medical; Visit Provider Obstetrics & Gynecology
PROC: (CPT 59514; principal; 2023-09-16 17:30)
DX: O64.8XX0 Obstructed labor due to other malposition and malpresentation, not applicable or unspecified (principal); O62.1 Secondary uterine inertia; O99.824 Streptococcus B carrier state complicating childbirth; O99.344 Other mental disorders complicating childbirth; F41.9 Anxiety disorder, unspecified; F32.A Depression, unspecified; O99.214 Obesity complicating childbirth; Z78.9 Other specified health status; K21.9 Gastro-esophageal reflux disease without esophagitis; O99.013 Anemia complicating pregnancy, third trimester; O13.5 Gestational [pregnancy-induced] hypertension without significant proteinuria, complicating the puerperium; G89.18 Other acute postprocedural pain; Z3A.39 39 weeks gestation of pregnancy; Z37.0 Single live birth
CPT/HCPCS: 01961; 01967; 36415; 59200; 64488; 76942; 80076; 82565; 82570; 84156; 85018; 85025; 86850; 86900; 86901; 99140; A9270; C1726; C9290; J0290; J0330; J0456; J0665; J0690; J1170; J1885; J2210; J2270; J2371; J2405; J2590; J2704; J2795; J3010; J7050; J7120; S0020

== ENCOUNTER 2023-09-24 11:02 | Outpatient (CLI) | payer OTHER, SELFPAY ==
--- NOTE | 2023-09-24 15:17 | P.LACCB_ITS ---
Consult Note - Mom Date of Visit Date of visit: 09/24/23 client relationship consultant: Etta Cabrera Visit Code: Visit Patient's Information Phone number: [phone] : 1 Para: 1 Allergies No Known Drug Allergies Allergy (Verified 09/10/23 08:41) Mother's Medical History: Medical History (Updated 09/17/23 @ 09:46 by Chriss Pelaez CNM) Grief ?F43.21 - Adjustment disorder with depressed mood (ICD-10) Anxiety and depression ?F41.9 - Anxiety disorder, unspecified (ICD-10) ?F32.A - Depression, unspecified (ICD-10) Hx breast reduction surgery Work Plans: Works for [employer], has 5 month leave Delivery Information Delivery type: Primary C/S; Labored Weeks Gestation: 39.6 Gestational Age: AGA Weight: 3.324 kg Discharge Weight: 3.34 kg Baby's Information Baby's Age at Visit: 8 days Baby's Provider or Clinic: Chary Engle NP Jaundice: No Reason for Consult Reason for Consult: concern for transfer/supply Past Experience Past Experience: No Pumping Pumping: Yes (randomly) Quantity Pumped: .5 - 1 oz total each time Supplementing EMB Supplement: Yes (have started to increase EBM/formula supplementation (.5 - 1 oz each time)) Formula Supplement: Yes Baby Elimination Number of Wet Diapers a Day: at least 5/day Number of BM a Day: at least 3/day, yellow and seedy Breast/Nipple Condition Breast Information: WNL Engorgement: No Maternal Nipple Condition - Left: Common Nipple Maternal Nipple Condition - Right: Common Nipple Sore Nipples: No Onsite Pre-Feed weight: 3.324 kg Post-Feed weight: 3.34 kg Milk Transferred (mL): 16 Assessments/Interventions Assessments/Interventions: Met with mom and this now 8 day old ex- term AGA baby for consult. Mom is concerned about her milk supply as well as about how much baby is transferring. She states baby is almost constantly at the breast. Mom can tell when she's actively/nutritively suckling, but states even as baby gets sleepy and starts to pacify, when mom tries to put her down she wakes up and gives feeding cues. Mom offers both sides but thinks her right side is her better termite inspector. She has pumped randomly with a new Momcozy pump and gets .5 - 1 oz total each time. POC have given baby everything mom has pumped as well as several ounces of formula over the last few days b/c they were concerned she wasn't taking enough at the breast. Breasts WNL- symmetrical with rounded lower quadrants, intramammary distance is < 1.5 inches. Nipples are everted and don't flatten or retract on compression, no damage noted. Mom with hx of breast reduction surgery. She reports positive breast changes in . Baby has lost 26 grams since her NB visit on 09/21/23 and is now 5% below BW. Mom denies any caput/cephalohematoma at delivery and thinks she has equal ROM when turning her head from side to side and moving her extremities. Baby's upper frenulum is a little thicker than normal but her gums don't arnoldo when her lip is flanged. Her palate is slightly elevated. She wouldn't suck on a finger, but the tongue has fairly good lateralization. Her lower frenulum appears to be WNL. Mom latched baby to the left side and the latch was wide, lips were flanged, mom was comfortable. Baby was alert and active for most of the feeding but her suckles looked more pacifying than nutritive, only minor improvement when mom tried breast compression. She was switched to the right side after about 10 minutes and nursed another 10 - 15 minutes for a total of a 20 - 25 minute feeding. When she was weighed she had transferred 16 ml. Mom was measured and flange sizes were recommended. Handout on flange fit given. Discussed that with breast reduction surgery it can be difficult to have enough milk to exclusively breastfeed but that any amount of her milk she can give to baby is important. Plan: 1. Encouraged mom to nurse baby ALD or at least every three hours. Suggested she limit the feeding sessions to 20 - 30 minutes total. 2. Supplement baby with 1 - 1.5 oz EBM/formula after every feeding. 3. Increase her pumping to a number of times/day she can be consistent with (suggested 4 - 6 times). Reviewed that this plan should help baby feel more satisfied and give mom a break between feedings. 4. Will f/u with PCP for a 2 week WCC and I will f/u by phone on 10/01/23. Could suggest one month pre and post weight check, will encourage [place] and/or [place] baby groups. Meds Home Medications and Allergies Home Medications Medication Instructions Recorded Confirmed Type prenat.vits,dickson,[id number]-[id number] 1 tab PO QDAY 01/27/23 09/14/23 History Allergies Allergy/AdvReac Type Severity Reaction Status Date / Time No Known Drug Allergies Allergy Verified 09/10/23 08:41
== END 2023-09-24 11:03 | disposition home or self-care (01) ==
LOC: OB LAC 11:03
PROVIDERS: PCP Physician Assistant Medical; Visit Provider Obstetrics & Gynecology
DX: Z39.1 Encounter for care and examination of lactating mother (principal)
CPT/HCPCS: G0463

== ENCOUNTER 2023-11-10 11:09 | Outpatient (CLI) | payer OTHER, SELFPAY | END 2023-11-10 11:10 | disposition home or self-care (01) | PROVIDERS: PCP Physician Assistant Medical; Visit Provider Advanced Practice Midwife | DX: E83.110 Hereditary hemochromatosis (principal) | CPT/HCPCS: 82728; 83540; 83550 ==

== ENCOUNTER 2024-11-07 13:34 | Outpatient (CLI) | payer OTHER, SELFPAY | END 2024-11-07 13:35 | disposition home or self-care (01) | LOC: NFLDREF 13:36 | PROVIDERS: PCP Physician Assistant Medical; Visit Provider Family Medicine | DX: I83.92 Asymptomatic varicose veins of left lower extremity (principal); M79.662 Pain in left lower leg; Z83.49 Family history of other endocrine, nutritional and metabolic diseases | CPT/HCPCS: 85610; 85613; 85730; 86146; 86147 ==

== ENCOUNTER 2024-11-07 13:52 | Outpatient (CLI) | payer OTHER, SELFPAY ==
--- NOTE | 2024-11-07 14:45 | CRLHL7_ITS ---
For Patients: As a result of the Century Cures Act, medical imaging exams and procedure reports are released immediately into your electronic medical record. You may view this report before your referring provider. If you have questions, please contact your health care provider. INDICATION: Left calf pain TECHNIQUE: Gallardo-scale two-dimensional ultrasound without and with compression as well as color-flow and spectral Doppler of the left lower extremity veins. COMPARISON: None. FINDINGS: Normal compressibility of and flow within the left common femoral, superficial femoral, popliteal, posterior tibial, profunda, and greater saphenous veins is demonstrated. No thrombus is identified. The right common femoral vein is clear. IMPRESSION: Negative left lower extremity venous Doppler study. Dictated by Carlos Burrows MD @ 11/08/2024 8:29:14 AM (Electronically Signed)
== END 2024-11-07 13:53 | disposition home or self-care (01) ==
LOC: US 13:53
PROVIDERS: PCP Physician Assistant Medical; Visit Provider Family Medicine
DX: M79.662 Pain in left lower leg (principal)
CPT/HCPCS: 93971

== ENCOUNTER 2025-07-10 16:15 | Outpatient (CLI) | payer OTHER, SELFPAY ==
[2025-07-13 09:56] LABS: HPV Source Cervix
[2025-07-17 10:41] LABS: Pap Test Reviewed by Pathologi Done; Pap Test Screened Manually Done
== END 2025-07-10 16:16 | disposition home or self-care (01) ==
PROVIDERS: PCP Physician Assistant Medical; Visit Provider Obstetrics & Gynecology
DX: B97.7 Papillomavirus as the cause of diseases classified elsewhere (principal)
CPT/HCPCS: 87624; 87625; 88141; 88142; 88175

== ENCOUNTER 2025-07-12 10:07 | Outpatient (CLI) | payer OTHER, SELFPAY | END 2025-07-12 10:08 | disposition home or self-care (01) | LOC: NFLDREF 07-14 18:25 | PROVIDERS: PCP Physician Assistant Medical; Referring Provider Physician Assistant Medical; Visit Provider Obstetrics & Gynecology | DX: Z13.9 Encounter for screening, unspecified (principal); N93.9 Abnormal uterine and vaginal bleeding, unspecified | CPT/HCPCS: 80061; 82728; 82947; 84443 ==